=== PATIENT | female | born 1980 | race Hispanic/Latino ===

== ENCOUNTER 2023-02-27 14:55 | Emergency (ER) | payer BC, SELFPAY ==
[2023-02-27] VITALS (9 sets, daily range): BP systolic 102–127; BP diastolic 60–82; PULSE 60–84; RESP 11–20; TEMP 36.1–36.6; O2SAT 98–100
--- NOTE | ~2023-02-27 | CT_ITS ---
Noncontrast CT scan of the lumbar spine CLINICAL HISTORY: Pain, urinary incontinence TECHNIQUE: Axial noncontrast imaging of the lumbar spine was performed. Sagittal and coronal reformat paul images were constructed. Dose reduction technique was used on this scan by utilizing automated ex posure control and iterative reconstruction technique. The dose-length product (DLP) was 719.20 mGy-c m. FINDINGS: There is no fracture or subluxation lumbar spine. Vertebral bodies maintain normal height a nd alignment. Intervertebral disc spaces are preserved. No definite disc bulge or herniation seen. No spinal canal stenosis or neural foraminal narrowing evident. Paravertebral soft tissues are unremarkable. There is a suggestion of a complex cystic left adnexal m ass versus possibly an exophytic complex fibroid. Impression: No significant findings on the lumbar spine itself. Possible complex cystic left adnexal mass versus exophytic complex fibroid. Consider ultrasound for f urther evaluation as indicated. Reviewed, dictated and finalized at location . Impression: No significant findings on the lumbar spine itself. Possible complex cystic left adnexal mass versus exophytic complex fibroid. Con talent partner ultrasound for further evaluation as indicated.
--- NOTE | 2023-02-27 15:46 | ED.EXTPRO ---
HPI - Extremity Problem General Chief complaint: Extremity Problem,Nontraumatic Stated complaint: left leg pain Time Seen by Provider: 02/27/23 15:28 History of Present Illness HPI Narrative: Patient is a 42-year-old female here with leg pain and urinary symptoms. Patient notes that she has been experiencing left leg pain for more than 2 years. 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 She notes that she has been referred to several physicians but is not currently following with any primary care doctor or specialists however was told in the past that this lesion may need to be biopsied. She notes that she [place] about [place] hour away and wanted to come to the ER for additional recommendations and local referrals. She notes that the left leg is painful over her anterior hip and the pain radiates into her buttock and down her leg. Pain is worse with movement. She denies any midline back pain. Today she notes that she began having some urinary incontinence. She notes that she does feel like she has to pee but is usually unable to make it to the bathroom and dribbles urine on herself. Denies saddle anesthesia, denies trauma. Related Data Allergies Allergy/AdvReac Type Severity Reaction Status Date / Time hydromorphone [From Dilaudid] AdvReac Unknown Verified 02/27/23 15:31 Review of Systems Review of Systems: CONSTITUTIONAL: Denies fever, chills, or sweats. EYES: Denies visual changes, redness, or discharge. ENT: Denies rhinorrhea, congestion, sore throat, or otalgia. CARDIOVASCULAR: Denies chest pain, palpitations, or edema. RESPIRATORY: Denies cough or dyspnea. GASTROINTESTINAL: Denies abdominal pain, nausea, vomiting, or diarrhea. GENITOURINARY: Denies dysuria or hematuria. Urinary incontinence, no saddle anesthesia. SKIN: Denies rash or itching. MUSCULOSKELETAL: lower back pain, left upper leg pain. NEUROLOGIC: Denies headache, numbness, or weakness. PSYCHIATRIC: Denies anxiety or depression. Exam Narrative: GENERAL: Well-appearing, well-nourished, and in no acute distress. HEAD: Normocephalic, atraumatic. EYES: PERRLA and EOMI. ENT: Nares clear. Mucous membranes moist. NECK: Supple. CHEST: Clear to auscultation. No respiratory distress. HEART: Regular rate and rhythm. Normal peripheral pulses. ABDOMEN: Soft, nontender, nondistended. EXTREMITIES: Normal range of motion. No edema. Patient has swelling over the anteriolateral left proximal thigh. No midline L spine tenderness. SKIN: Warm, dry, no rash. NEURO: No focal deficits. Alert and oriented x3. PSYCH: Normal mood and affect. Course Course Emergency Course: Chart review performed. patient is here for left buttock pain radiating into the lower leg, recent urinary incontinence. No prior visits in our system. Triage vitals within normal limits. patient is seen evaluated, appears to be somewhat in pain, minimally reproducible on exam. Although she does describe urinary incontinence it appears that she likely just has been unable to make it to the bathroom due to her pain. She has no saddle anesthesia. Will do postvoid residual. We will do CT lumbar spine as well as basic lab work. Postvoid residual is 15 mL. Do not believe patient is having urinary retention. Unlikely that she has any pathology in her lumbar spine. I am awaiting her CT. CBC unremarkable. Electrolytes unremarkable. CRP negative. CT negative aside from left complex cystic adnexal mass vs fibroid. Will refer to primary care in this area as well as general surgery for possible biopsy of soft tissue mass. Will additionally refer to OBGYN for her adnexal mass vs fibroid. The results of pertinent diagnostic studies and exam findings were discussed. The patient?s provisional diagnosis and plan of care were discussed with the patient and present family. The patient and/or present family expressed unders
[2023-02-27] MEDS: KETOROLAC 15 MG/ML VIAL (*BKC) IV PUSH (16:31)
[2023-02-27 16:38] LABS: Basophils Percent Auto 0.4 % (0.2-1.2); Eosinophils Absolute Auto 0.2 K/mm3 (0-0.3); Eosinophils Percent Auto 2.2 % (0-4.4); Hematocrit 42.4 % (37.0-47.0); Hemoglobin 14.1 g/dL (12.0-15.0); Immature Granulocyte Absolute 0.05 K/mm3 (0.00-0.031); Immature Granulocyte Percent A 0.6 % (0-0.5); Lymphocytes Absolute Auto 3.57 K/mm3 (0.9-3.2); Lymphocytes Percent Auto 39.9 % (18.3-44.2); Mean Corpuscular HGB Conc 33.3 g/dl (32-36); Mean Corpuscular Hemoglobin 31.8 pg (26-34); Mean Corpuscular Volume 95.7 fl (80-100); Mean Platelet Volume 9.7 fl (7.4-10.4); Monocytes Absolute Auto 0.7 K/mm3 (0.1-0.6); Monocytes Percent Auto 7.5 % (2.6-8.5); Neutrophils Absolute Auto 4.4 K/mm3 (1.3-6.7); Neutrophils Percent Auto 49.4 % (45.5-73.1); Platelet Count Result 292 k/mm3 (150-375); Red Blood Count 4.43 M/mm3 (4.2-5.4); Red Cell Distribution Width 13.6 % (11.5-14.5)
[2023-02-27 16:39] LABS: Appearance Urine Clear (Clear); Bilirubin Urine Negative (Negative); Blood Urine Negative (Negative); Color Urine Yellow (Yellow); Glucose Urine UA Negative (Negative); Ketones Urine Negative (Negative); Leukocyte Esterase Ur Negative LEU/UL (Negative); Nitrate Urine Negative (Negative); Protein Urine Negative (Negative); Urobilinogen Urine 0.2 mg/dL (<2.0); pH Urine 5.5 (5.0-9.0)
[2023-02-27 16:57] LABS: Add Urine Microscopic? NO
[2023-02-27 17:13] LABS: Alanine Aminotransferase 78 U/L (6-35); Albumin Level 4.1 g/dL (3.5-5.1); Alkaline Phosphatase 71 U/L (38-126); Anion Gap 5 mmol/L (8-16); Aspartate Amino Transferase 67 U/L (14-36); Bilirubin,Total 0.4 mg/dL (0.2-1.3); Blood Urea Nitrogen 12 mg/dL (7-17); CRP 0.9 mg/dL (<1.0); Calcium 9.4 mg/dL (8.4-10.2); Carbon Dioxide 25 mmol/L (22-30); Chloride 106 mmol/L (98-107); Estimated CRCL calculation 95 ml/min; Estimated Glomerular Filt Rate > 60; Glucose 86 mg/dL (65-110); Potassium 4.3 mmol/L (3.4-5.0); Sodium 136 mmol/L (137-145)
[2023-02-27] MEDS: MORPHINE SULFATE INJ (*CRX) 10 MG/ML AMP IM (17:54)
[2023-02-27] MEDS: ONDANSETRON INJ 4 MG/2 ML VIAL IV PUSH (19:22)
== END 2023-02-27 19:25 | disposition home or self-care (01) ==
PROVIDERS: Emergency Provider Student in an Organized Health Care Education/Training Program
DX: M79.652 Pain in left thigh (principal); N94.89 Other specified conditions associated with female genital organs and menstrual cycle; M79.89 Other specified soft tissue disorders
CPT/HCPCS: 36415; 72131; 80053; 81003; 81025; 85025; 86140; 96372; 96374; 96375; 99284; J1885; J2270; J2405